=== PATIENT | male | born 1985 | race Caucasian/White ===

== ENCOUNTER → 2017-03-25 | Outpatient (CLI) | payer OTHER ==
--- NOTE | 2017-03-25 10:35 | RADIOLOGY REPORT (SQ) ---
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 TECHNIQUE: Sagittal and Axial imaging includes T1, T2, STIR and gradient echo sequences. Coronal T2/ HASTE imaging. LIMITATIONS: None. FINDINGS: VISUALIZED UPPER ABDOMEN: Limited evaluation. No acute or suspicious findings suggested. SEGMENTATION: No transitional anatomy. The lowest well-developed disc space is labeled L5-S1. ALIGNMENT: Anatomic. VERTEBRAE: Intact. BONE MARROW: Normal. No marrow replacement or reactive changes. DISC SIGNAL: Mild loss of height L5-S1. POSTERIOR ELEMENTS: Generally intact. No pars defect evident. HARDWARE: None in the spine. CORD AND CONUS: Normal in size and signal intensity. Conus at the appropriate level. SOFT TISSUES: No aortic aneurysm seen. No bulky retroperitoneal adenopathy or mass. No paraspinal mas s or fluid. L1-L2: No significant spinal stenosis or exit foraminal stenosis. L2-L3: No significant spinal stenosis or exit foraminal stenosis. Mild ligamentous hypertrophy with fluid in the facets. L3-L4: No significant spinal stenosis or exit foraminal stenosis. Facet and ligamentous hypertrophy with minimal lateral recess narrowing. L4-L5: Facet hypertrophy. Mild narrowing of the exit foramina. L5-S1: Left paracentral focal disc protrusion which deviates the intrathecal left S1 root. Small fis sure. Mild narrowing of the left exit foramina. LOWER THORACIC: Incompletely imaged. No stenosis seen. SACRUM: Visualized upper sacrum intact. OTHER: No other significant findings. IMPRESSION: Focal left paracentral disc protrusion L5-S1 which deviates the intrathecal left S1 root . Associated small fissure in the disc. Mild narrowing of the left exit foramina. TECHNICAL DOCUMENTATION: JOB ID: [id number] [employer]- All Rights Reserved
== END ==
LOC: RAD 08:10
PROVIDERS: ATTEND Urology
DX: M51.36 Other intervertebral disc degeneration, lumbar region (principal); N50.82 Scrotal pain; I86.1 Scrotal varices; N20.0 Calculus of kidney; N50.819 Testicular pain, unspecified
CPT/HCPCS: 72148